=== PATIENT | male | born 1980 | race Hispanic/Latino ===

== ENCOUNTER 2018-07-14 13:26 | Emergency (ER) | payer OTHER ==
[2018-07-14 13:32] VITALS: BP 147/84; PULSE 92; RESP 20; TEMP 97.3; O2SAT 97
--- NOTE | 2018-07-14 15:06 | ED PDOC ---
HPI: Allergic Reaction Time Seen by Provider: 07/14/18 13:32 Chief Complaint (Nursing): Allergic Reaction Chief Complaint (Provider): Allergic Reaction History Per: Patient History/Exam Limitations: no limitations Onset/Duration Of Symptoms: Days (x3 days and [employer]IED [employer]DS [employer]) Current Symptoms Are (Timing): Still Present Possible Cause: Medication Associated Symptoms: Skin Rash Additional Complaint(s): 38 year old male with no significant past medical history presents to the ED with rash onset [employer]. Patient reports he developed similar rash x3 days ago. At which time, he was seen at a hospital in [place] and discharged home with Benadryl and prednisone. He denies any shortness of breath, throat swelling, chest pain or any other medical complaints. Prior to developing rash, patient took Niacin and ate blueberries and prior to developing rash x3 days ago he took Niacin. He has been taking Niacin for a while, but recently he changed the brand. PMD: none provided Past Medical History Reviewed: Historical Data, Nursing Documentation, Vital Signs Vital Signs: Last Vital Signs Temp 97.3 F L 07/14/18 13:29 Pulse 92 H 07/14/18 13:29 Resp 20 07/14/18 13:29 BP 147/84 07/14/18 13:29 Pulse Ox 97 07/14/18 13:29 - Medical History PMH: No Chronic Diseases - Family History Family History: States: Unknown Family Hx - Allergies Allergies/Adverse Reactions: Allergies Allergy/AdvReac Type Severity Reaction Status Date / Time No Known Allergies Allergy Verified 07/14/18 13:29 Review of Systems ROS Statement: Except As Marked, All Systems Reviewed And Found Negative ENT: Negative for: Throat Swelling Cardiovascular: Negative for: Chest Pain Respiratory: Negative for: Shortness of Breath Skin: Positive for: Rash Physical Exam - Reviewed Nursing Documentation Reviewed: Yes Vital Signs Reviewed: Yes - Physical Exam Appears: Positive for: No Acute Distress Head Exam: Positive for: ATRAUMATIC Skin: Positive for: Rash (erythematous rash with blanching, no urticaria, no lesions, no tenderness and no induration) Eye Exam: Positive for: Normal appearance, EOMI, PERRL ENT: Positive for: Normal ENT Inspection, Pharynx Is (clear) Cardiovascular/Chest: Positive for: Regular Rate, Rhythm. Negative for: Murmur Respiratory: Positive for: Normal Breath Sounds, Other (speaking in full sentances). Negative for: Respiratory Distress Gastrointestinal/Abdominal: Positive for: Normal Exam, Soft. Negative for: Tenderness Extremity: Positive for: Normal ROM (upper and lower). Negative for: Pedal Edema, Deformity Neurological/Psych: Positive for: Awake, Alert, Oriented (x3) - ECG O2 Sat by Pulse Oximetry: 97 (RA) Pulse Ox Interpretation: Normal Disposition - Clinical Impression Clinical Impression: Adverse reaction to niacin - Disposition Disposition Time: 14:53 Condition: STABLE Additional Instructions: FOLLOW-UP WITH PMD WITHIN 2 DAYS FOR REEVALUATION. DISCONTINUE NIACIN UNTIL REEVALUATED BY DOCTOR. Instructions: Niacin Forms: [employer] ([place]) Medical Decision Making Medical Decision Making: Time: 1332 Plan: --Benadryl 25 mg PO --Motrin 600 mg PO --Pepcid 40 mg PO Time: 1453 --On reevaluation, patients symptoms resolved after receiving Motrin. Patient is medically stable for discharge home and advised to follow up with PMD in 1-2 days. Scribe Attestation: Documented by Edwina Deluca, acting as a scribe for Jolly Wilkinson MD. Provider Scribe Attestation: All medical record entries made by the Scribe were at my direction and personally dictated by me. I have reviewed the chart and agree that the record accurately reflects my personal performance of the history, physical exam, medical decision making, and the department course for this patient. I have also personally directed, reviewed, and agree with the discharge instructions and disposition.
== END 2018-07-14 15:26 | disposition home or self-care (01) ==
LOC: H.ER 13:26
DX: T78.8XXA Other adverse effects, not elsewhere classified, initial encounter (principal)